=== PATIENT | male | born 1970 | race Caucasian/White ===

== ENCOUNTER 2021-12-18 09:44 | Outpatient (CLI) | payer BC | END 2021-12-18 09:45 | disposition home or self-care (01) | LOC: BICRAD 09:44 | PROVIDERS: ATTEND Family Medicine | DX: M25.562 Pain in left knee (principal); M17.12 Unilateral primary osteoarthritis, left knee; Z00.00 Encounter for general adult medical examination without abnormal findings; E11.9 Type 2 diabetes mellitus without complications | CPT/HCPCS: 36415; 80053; 80061; 82043; 83036; 84443; 85025; G0103 ==